=== PATIENT | female | born 1940 | race Two or more races ===

== ENCOUNTER 2017-12-01 07:53 | Outpatient (CLI) | payer MEDICARE, MEDICAID ==
[~2017-12-01 07:53] MED LIST: CLON0.5T4 PO; ISOS60TA4 PO; LISI1TAB13 PO; METO25TA6 PO; NAPR-1164 PO; SIMV20TA6 PO; VALS1TAB6 PO
[2017-12-01] MEDS ORDERED: REGADENOSON 0.4 MG/5 ML DISP.SYRIN IVP ONE (09:00)
== END 2017-12-01 23:59 | disposition home or self-care (01) ==
LOC: RAD 07:53
PROVIDERS: ATTEND Internal Medicine Interventional Cardiology
DX: R07.9 Chest pain, unspecified (principal); I10 Essential (primary) hypertension
CPT/HCPCS: 78452; A9502; J2785